=== PATIENT | male | born 1940 | race American Indian/Alaskan Native ===

== ENCOUNTER 2016-12-18 06:30 | Day surgery (SDC) | payer MEDICARE, BC ==
[2016-12-18] MEDS ORDERED: Propofol 10 mg/ml Inj (20 ML) ONE ×2 (08:04)
--- NOTE | 2016-12-18 08:14 | CP.SDSHP ---
Same Day Surgery H & P - History Proposed Procedure: colonosocpy Pre-Op Diagnosis: screen - Previous Medical/Surgical History Cardiac: Hypertension Endocrine/Metabolic: Diabetes - Allergies Allergies: Allergies No Known Allergies Allergy (Verified 12/18/16 06:51) - Physical Exam Vital Signs: Vital Signs 12/18/16 12/18/16 06:40 08:01 Temperature 97.1 F L 97.1 F L Pulse Rate 87 87 Respiratory 20 20 Rate Blood Pressure 112/75 114/75 O2 Sat by Pulse 98 99 Oximetry Mental Status: Alert & Oriented x3 Neuro: WNL Heart: WNL Lungs: WNL GI: WNL - {Optional Preform as Required} Abdomen: WNL - Impression Impression: screening Pt. Evaluated Today:Candidate for Anesthesia & Procedure: Yes - Date & Time Date: 12/18/16 Time: 08:00 Short Stay Discharge - Short Stay Discharge Admitting Diagnosis/Reason for Visit: SCREENING Disposition: HOME/ ROUTINE
[2016-12-18] MEDS ORDERED: Lactated Ringer's 500 ML IV SCH (08:15)
[2016-12-18 08:50] VITALS: TEMP 97.8
[2016-12-18 09:22] VITALS: RESP 18; O2SAT 97
[2016-12-18 10:50] VITALS: BP 106/77; PULSE 84
== END 2016-12-18 10:45 | disposition home or self-care (01) ==
LOC: C.ENDO 06:30
PROVIDERS: ATTEND Internal Medicine Gastroenterology
DX: D12.5 Benign neoplasm of sigmoid colon (principal); K64.8 Other hemorrhoids; K57.30 Diverticulosis of large intestine without perforation or abscess without bleeding; K62.1 Rectal polyp
CPT/HCPCS: 45388; 82948; 88305; J2704; J3010; J7120